=== PATIENT | female | born 1990 | race American Indian/Alaskan Native ===

== ENCOUNTER 2017-02-25 19:56 | Emergency (ER) | payer SELFPAY ==
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
[2017-02-26] MEDS ORDERED: MORPHINE IM ONE (00:17)
[2017-02-26] MEDS ORDERED: TORADOL IM ONE (00:18)
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
[2017-02-26] MEDS ORDERED: NACL 0.9% IR ONE ×2 (02:05→05:16)
[2017-02-26] MEDS ORDERED: ZOFRAN ODT PO ONE (02:44)
[2017-02-26] MEDS ORDERED: XYLOCAINE 2% INFILTRATI ONE ×2 (04:49→05:17)
[2017-02-26] MEDS ORDERED: NACL 0.9% 500 ML IR ONE ×2 (04:51→04:53)
[2017-02-26] MEDS ORDERED: ANCEF IM ONE (05:19)
[2017-02-26] MEDS ORDERED: POLYSPORIN TP ONE ×2 (06:11→08:00)
[2017-02-26 06:51] VITALS: BP 110/74
== END 2017-02-26 08:16 | disposition home or self-care (01) ==
LOC: ED 19:56
DX: S61.411A Laceration without foreign body of right hand, initial encounter (principal); F17.210 Nicotine dependence, cigarettes, uncomplicated; Z88.8 Allergy status to other drugs, medicaments and biological substances; Z91.013 Allergy to seafood; W25.XXXA Contact with sharp glass, initial encounter; Y93.89 Activity, other specified; Y92.89 Other specified places as the place of occurrence of the external cause; Y99.8 Other external cause status
CPT/HCPCS: 12001; 73140; 96372; 99284; J0690; J1885; J2270; 99283; Q0162